=== PATIENT | female | born 1945 | race Caucasian/White ===

== ENCOUNTER → 2023-09-06 | Outpatient (CLI) | payer MEDICARE | END | disposition home or self-care (01) | LOC: CARD 14:49 | PROVIDERS: ATTEND Physician Assistant | DX: I07.1 Rheumatic tricuspid insufficiency (principal); R91.8 Other nonspecific abnormal finding of lung field; I27.20 Pulmonary hypertension, unspecified ==

== ENCOUNTER → 2023-09-22 | Outpatient (CLI) | payer MEDICARE ==
[~2023-09-22] MED LIST: IOHEXOL 300 MG/ML 100 ML VIAL IV ONE
== END | disposition home or self-care (01) ==
LOC: CT 09-20 17:00
PROVIDERS: ATTEND Physician Assistant
DX: R91.1 Solitary pulmonary nodule (principal); J98.11 Atelectasis; R06.02 Shortness of breath; R93.89 Abnormal findings on diagnostic imaging of other specified body structures; J18.9 Pneumonia, unspecified organism; N28.1 Cyst of kidney, acquired; Z90.49 Acquired absence of other specified parts of digestive tract

== ENCOUNTER 2023-11-24 14:39 | Emergency (ER) | payer MEDICARE ==
[~2023-11-24] VITALS: Ht 160 cm; Wt 83.9 kg
[~2023-11-24 14:39] MED LIST changes: +BREZTRI AEROS10.7 GM INH; +FUROSEMIDE40 MG PO; -IOHEXOL 300 MG/ML 100 ML VIAL IV ONE; +MACROBID100 M1 PO; +POTASSIUM CHLO20 ME4 PO; +PREDNISONE10 MG PO
== END 2023-11-24 17:52 | disposition home or self-care (01) ==
LOC: ED 14:39
DX: N81.4 Uterovaginal prolapse, unspecified (principal); R33.9 Retention of urine, unspecified; J44.9 Chronic obstructive pulmonary disease, unspecified; F17.200 Nicotine dependence, unspecified, uncomplicated; Z88.0 Allergy status to penicillin; Z90.49 Acquired absence of other specified parts of digestive tract

== ENCOUNTER 2025-02-25 21:57 | Emergency (ER) | payer MEDICARE ==
[~2025-02-25 21:57] MED LIST changes: +BUPROPION HYDR150 M3 PO; +OMNICEF300 MG PO
[2025-02-25 22:57] LABS: BASO # 0.1 10*3/uL (0.0-0.1); BASO % 0.4 % (0.0-1.0); EOS # 0.0 10*3/uL (0.0-0.4); EOS % 0.1 % (1.0-4.0); MEAN CELL VOLUME 84.1 fl (81.0-99.0); MEAN CORPUSCULAR HGB 26.0 pg (27.0-31.0); MEAN PLATELET VOLUME 8.6 fl (9.6-12.3); MONO # 0.7 10*3/uL (0.1-1.0); MONO % 5.6 % (3.0-9.0); NEUT # 11.3 10*3/uL (2.3-7.9); NEUT % 87.4 % (47.0-73.0); NUCLEATED RED BLOOD CELL 0.0 % (0.0-0.0); NUCLEATED RED BLOOD CELL 0.0 10*3/uL (0.0-0.0); PLATELET COUNT AUTOMATED 353 10*3/uL (130-400); RED CELL DISTRI WIDTH 14.4 % (0-14.5)
[2025-02-25 23:15] LABS: BUN 11 mg/dl (9-23)
[2025-02-25 23:30] LABS: BILIRUBIN Negative (Negative); BLOOD 1+ (Negative); CLARITY Clear (Clear); COLOR Yellow (Yellow); KETONE Negative (Negative); LEUKO ESTERASE Trace (Negative); NITRITE Negative (Negative); PH 6.0 (4.5-8.0); SPECIFIC GRAVITY 1.010 (1.001-1.030); UROBILINOGEN 1.0 E.U./dl (0.0-1.0)
[2025-02-26 00:09] LABS: EPITHELIAL CELLS 16-20
[2025-02-26 00:10] LABS: BACTERIA 1+
== END 2025-02-26 01:25 | disposition home or self-care (01) ==
LOC: ED 21:57
PROVIDERS: Internal Medicine
DX: B34.9 Viral infection, unspecified (principal); R79.82 Elevated C-reactive protein (CRP); E87.1 Hypo-osmolality and hyponatremia; D72.829 Elevated white blood cell count, unspecified; D64.9 Anemia, unspecified; Z20.822 Contact with and (suspected) exposure to COVID-19; F17.200 Nicotine dependence, unspecified, uncomplicated; Z88.0 Allergy status to penicillin; Z79.899 Other long term (current) drug therapy; Z90.49 Acquired absence of other specified parts of digestive tract